=== PATIENT | female | born 1990 | race African-American/Black ===

== ENCOUNTER 2018-09-13 20:46 | Emergency (ER) | payer OTHER ==
[2018-09-13 20:54] VITALS: BP 142/87
--- NOTE | 2018-09-13 21:10 | ED Physician Documentation ---
PD HPI HEENT - Stated complaint Stated Complaint: THROAT PX - Chief complaint Chief Complaint: Heent - History obtained from History obtained from: Patient - History of Present Illness Timing - onset: Enter time (0), Today Timing - duration: Minutes Timing - details: Abrupt onset, Now resolved Location: Throat Improves: Ice Worsens: Swalllowing Associated symptoms: No: Fever, Congestion, Rhinorrhea, Trismus, Unable to swallow, Swollen nodes, Facial swelling, Headache, Cough Similar symptoms before: Has not had sx before Recently seen: Surgery - Additional information Additional information: 28-year-old female who has had her tonsils out 1 week ago for recurrent strep pharyngitis had a painful day yesterday and today the eschar fell off and she developed some bleeding. She states the bleeding was enough to make her stomach sour and she called Dr. Soto the surgeon and he recommended ice water which the patient was able to swallow. The patient states that the bleeding slowed down but continued and she has come to the emergency department. In route to the emergency department the bleeding is resolved she feels comfortable now and denies any sour stomach. Denies any nausea. Review of Systems Constitutional: denies: Fever, Myalgias Eyes: denies: Decreased vision Ears: denies: Ear pain Nose: denies: Rhinorrhea / runny nose, Congestion Throat: reports: Sore throat Cardiac: denies: Chest pain / pressure, Palpitations Respiratory: denies: Dyspnea, Cough GI: reports: Nausea (resovled). denies: Abdominal Pain, Vomiting : denies: Dysuria Skin: denies: Rash Musculoskeletal: denies: Neck pain, Back pain, Extremity pain Neurologic: denies: Generalized weakness, Focal weakness, Numbness PD PAST MEDICAL HISTORY - Past Surgical History Past Surgical History: No - Present Medications Home Medications: Ambulatory Orders Medication Instructions Recorded Confirmed Amoxicillin 500 mg PO TID 7 Days tablet 05/06/14 - Allergies Allergies/Adverse Reactions: Allergies Allergy/AdvReac Type Severity Reaction Status Date / Time No Known Drug Allergies Allergy Verified 09/13/18 20:54 - Social History Does the pt smoke?: No Smoking Status: Never smoker Does the pt drink ETOH?: No - Immunizations Immunizations are current?: Yes PD ED PE NORMAL - Vitals Vital signs reviewed: Yes (hypertensive mild ) - General General: Alert and oriented X 3, No acute distress, Well developed/nourished - HEENT HEENT: Atraumatic, PERRL, EOMI, Other (There is the typical white escar to the right tonsil base and to the left is a clot and no active bleeding. 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, No motor deficit, No sensory deficit, Normal speech Eye Opening: Spontaneous Motor: Obeys Commands Verbal: Oriented GCS Score: 15 - Psych Psych: Normal mood, Normal affect Results - Vitals Vitals: Vital Signs - 24 hr 09/13/18 20:50 Temperature 36.6 C Heart Rate 78 Respiratory 17 Rate Blood Pressure 142/87 H O2 Saturation 100 Oxygen O2 Source Room air PD MEDICAL DECISION MAKING - ED course Complexity details: reviewed old records, considered differential, d/w patient ED course: 28-year-old female with bleeding 1 week status post tonsillectomy has resolution of her current symptoms and has a clot on the left side. I discussed with the patient that should she have recurrence of her bleeding she is to return to the emergency department at any hour and if she has rapid bleeding to call the ambulance. I also indicated her that she likely have a sour stomach from the swallowed blood and may have dark stool for 2 days. At the time of evaluation in the emergency department the patient is smiling and appears well. Departure - Departure Disposition: 01 Home, Self Care Clinical Impression: Postoperative haemorrhage of tonsil Condition: Stable Instructions: ED Tonsillectomy Post Op Bleeding Follow-Up: Efrain Soto MD [Physician No Access] -
== END 2018-09-13 21:25 | disposition home or self-care (01) ==
LOC: ED 20:46
DX: K91.840 Postprocedural hemorrhage of a digestive system organ or structure following a digestive system procedure (principal)
CPT/HCPCS: 99282; 99283

== ENCOUNTER 2018-09-20 16:20 | Emergency (ER) | payer OTHER ==
[2018-09-20 16:25] VITALS: BP 136/80
[2018-09-20] MEDS ORDERED: BUFFERED LIDOCAINE 10 ML SYRINGE SUBQ STA (17:41)
--- NOTE | 2018-09-20 17:56 | ED Physician Documentation ---
PD HPI WOUND RECHECK - Stated complaint Stated Complaint: RT THIGH PX - Chief complaint Chief Complaint: Wound - Histroy obtained from History obtained from: Patient - History of Present Illness Location: Right Lower Extremity (4 days of an ingrown hair, Is on the medial thigh pretty high up. It is painful. No fevers or chills or possibility of .) Review of Systems Constitutional: reports: Reviewed and negative Throat: reports: Reviewed and negative Cardiac: reports: Reviewed and negative Respiratory: reports: Reviewed and negative PD PAST MEDICAL HISTORY - Past Surgical History Past Surgical History: No - Present Medications Home Medications: Ambulatory Orders Medication Instructions Recorded Confirmed Sulfamethoxazole/Trimethoprim 1 each PO BID #20 tablet 09/20/18 [Sulfamethoxazole-Tmp Ds Tablet] - Allergies Allergies/Adverse Reactions: Allergies Allergy/AdvReac Type Severity Reaction Status Date / Time No Known Drug Allergies Allergy Verified 09/20/18 16:25 - Social History Does the pt smoke?: No Smoking Status: Never smoker Does the pt drink ETOH?: No Does the pt have substance abuse?: No - Immunizations Immunizations are current?: Yes PD ED PE NORMAL - Vitals Vital signs reviewed: Yes - General General: Alert and oriented X 3, No acute distress - Extremities Extremities: Other (On the right medial thigh high up there is a pointed 2 cm abscess with mild surrounding cellulitis) - Neuro Neuro: Alert and oriented X 3, Normal speech Results - Vitals Vitals: Vital Signs - 24 hr 09/20/18 16:23 Temperature 36.8 C Heart Rate 95 Respiratory 16 Rate Blood Pressure 136/80 H O2 Saturation 100 Oxygen O2 Source Room air Procedures - Abscess I&D (location) R thigh Preparation: Betadine, Lidocaine 1% Incision: Incised with scalpel, Needle aspiration, Purulent drainage, Loculations broken, Packed (with 1/4 inch packing), Culture obtained Other: Pt tolerated well, Dressing applied, Antibiotic prescribed Departure - Departure Disposition: 01 Home, Self Care Clinical Impression: Abscess Condition: Good Record reviewed to determine appropriate education?: Yes Instructions: ED Abscess IandD Prescriptions: Sulfamethoxazole/Trimethoprim [Sulfamethoxazole-Tmp Ds Tablet] 1 each PO BID #20 tablet Comments: Return or see your doctor in 2 days for wound check and packing removal. We are performing a wound culture, the results should be done in 48-72 hours. If antibiotic change is necessary we will call you. Return if worse in the meantime, especially if you develop increased pain, fevers, cannot keep down the medication. Forms: Activity restrictions Discharge Date/Time: 09/20/18 18:38
[2018-09-20] MEDS ORDERED: SULFAMETH/TRIMETH DS 800/160 MG TABLET PO STA (18:23)
== END 2018-09-20 18:38 | disposition home or self-care (01) ==
LOC: ED 16:20
DX: L02.415 Cutaneous abscess of right lower limb (principal)
CPT/HCPCS: 10060; 87070; 87181; 87205; 99283; A9270

== ENCOUNTER 2019-11-16 10:18 | Emergency (ER) | payer OTHER ==
--- NOTE | 2019-11-16 11:53 | ED Physician Documentation ---
PD HPI URI - Stated complaint Stated Complaint: SOA/COUGH/CONGESTION - Chief complaint Chief Complaint: Resp - History obtained from History obtained from: Patient - History of Present Illness Timing - onset: How many weeks ago (over a week of initially congestion and cough, but now just very persistent cough, with coughing "fits" and feeling of phlegm in chest, but not productive.) Timing duration: Weeks (1) Timing details: Gradual onset, Still present Associated symptoms: Nasal congestion, Productive cough (feeling of phlegm in chest but not able to bring it up), Dyspnea. No: Fever, Sore throat, Swollen nodes, NVD Contributing factors: Sick contact (her son was sick with URI and some cough but improved.). No: Immunocompromised, COPD / asthma Similar symptoms before: Has not had sx before Review of Systems Constitutional: reports: Myalgias. denies: Fever, Chills Nose: reports: Congestion Throat: denies: Sore throat Cardiac: reports: Chest pain / pressure (hurting anteriorly with cough) Respiratory: reports: Dyspnea, Cough. denies: Wheezing GI: reports: Nausea (with coughing hard). denies: Vomiting, Diarrhea Musculoskeletal: denies: Extremity swelling Neurologic: denies: Near syncope, Syncope, Altered mental status PD PAST MEDICAL HISTORY - Past Medical History Past Medical History: No Respiratory: None - Past Surgical History Past Surgical History: Yes HEENT: Tonsil/Adenoidectomy - Present Medications Home Medications: Ambulatory Orders Medication Instructions Recorded Confirmed Sulfamethoxazole/Trimethoprim 1 each PO BID #20 tablet 09/20/18 [Sulfamethoxazole-Tmp Ds Tablet] Albuterol Sulfate [Albuterol 2 puffs IH QID #1 hfa.aer.ad 11/16/19 Sulfate Hfa] Azithromycin [Zithromax] 0 mg PO DAILY #6 tablet 11/16/19 Benzonatate [Tessalon Perle] 100 - 200 mg PO TID PRN #30 capsule 11/16/19 dexAMETHasone [Decadron] 4 mg PO DAILY #5 tablet 11/16/19 - Allergies Allergies/Adverse Reactions: Allergies Allergy/AdvReac Type Severity Reaction Status Date / Time No Known Drug Allergies Allergy Verified 11/16/19 10:23 - Social History Does the pt smoke?: No Smoking Status: Never smoker Does the pt drink ETOH?: Yes Does the pt have substance abuse?: No - Immunizations Immunizations are current?: Yes - POLST Patient has POLST: No PD ED PE NORMAL - Vitals Vital signs reviewed: Yes - General General: Alert and oriented X 3, No acute distress, Well developed/nourished - HEENT HEENT: Ears normal, Moist mucous membranes, Pharynx benign - Neck Neck: Supple, no meningeal sign, No adenopathy - Cardiac Cardiac: RRR, No murmur - Respiratory Respiratory: Clear bilaterally - Derm Derm: Normal color, Warm and dry - Neuro Neuro: Alert and oriented X 3, No motor deficit, Normal speech Results - Vitals Vitals: Vital Signs - 24 hr 11/16/19 11/16/19 10:23 12:33 Temperature 36.7 C Heart Rate 74 76 Respiratory 15 20 Rate Blood Pressure 145/73 H 138/79 H O2 Saturation 99 97 Oxygen O2 Source Room air PD MEDICAL DECISION MAKING - ED course Complexity details: considered differential (URI symptoms then focused symptoms to bronchial that has persisted. hard to tell if persistent viral versus bacterial transformation, with almost pertussis sound to it. ), d/w patient Departure - Departure Disposition: Home, Self Care Clinical Impression: Bronchitis Condition: Stable Record reviewed to determine appropriate education?: Yes Instructions: ED Upper Resp Infec Abx Tx Follow-Up: AREN JOHNSON [Primary Care Provider] - Prescriptions: Albuterol Sulfate [Albuterol Sulfate Hfa] 2 puffs IH QID #1 hfa.aer.ad Azithromycin [Zithromax] 0 mg PO DAILY #6 tablet Benzonatate [Tessalon Perle] 100 - 200 mg PO TID PRN #30 capsule PRN Reason: Cough dexAMETHasone [Decadron] 4 mg PO DAILY #5 tablet Comments: Stay well-hydrated. Use an albuterol inhaler 2 puffs 4 times a day to help with coughing and breathing. Decadron steroid for 5 days to help with bronchial inflammation. Benzonatate as needed for cough. Zithromax antibiotic as directed for 5 days. There may still be some infection present but it may just be inflammation that persists after the chest cold. Discharge Date/Time: 11/16/19 12:32
[2019-11-16] MEDS ORDERED: BENZONATATE 100 MG CAPSULE PO STA (12:20)
[2019-11-16] MEDS ORDERED: DEXAMETHASONE 10 MG/ML VIAL PO STA (12:20)
[2019-11-16] MEDS ORDERED: CHERRY SYRUP 10 ML UDC PO ONE (12:20)
[2019-11-16 12:34] VITALS: BP 138/79
== END 2019-11-16 12:32 | disposition home or self-care (01) ==
LOC: ED 10:18
DX: J40 Bronchitis, not specified as acute or chronic (principal)
CPT/HCPCS: 99284; A9270

== ENCOUNTER 2020-09-05 08:29 | Emergency (ER) | payer OTHER ==
[2020-09-05 08:44] VITALS: BP 132/90
--- NOTE | 2020-09-05 09:00 | ED Physician Documentation ---
History of Present Illness - Stated complaint Stated Complaint: NOSE PX - Chief complaint Chief Complaint: Heent - History obtained from History obtained from: Patient - History of Present Illness Timing: Today Pain level max: 0 Pain level now: 0 - Additonal information Additional information: 30-year-old female states she is unable to remove her nose ring today. Requesting removal. Nothing makes it better or worse. Review of Systems Constitutional: denies: Fever, Chills GI: denies: Vomiting, Diarrhea Skin: denies: Rash Musculoskeletal: denies: Neck pain, Back pain Neurologic: denies: Headache PD PAST MEDICAL HISTORY - Past Medical History Past Medical History: Yes Respiratory: None - Past Surgical History Past Surgical History: Yes HEENT: Tonsil/Adenoidectomy - Present Medications Home Medications: Ambulatory Orders Medication Instructions Recorded Confirmed No Known Home Medications 09/05/20 09/05/20 - Allergies Allergies/Adverse Reactions: Allergies Allergy/AdvReac Type Severity Reaction Status Date / Time No Known Drug Allergies Allergy Verified 09/05/20 08:44 - Social History Does the pt smoke?: No Smoking Status: Never smoker Does the pt drink ETOH?: Yes Does the pt have substance abuse?: No - Immunizations Immunizations are current?: Yes - POLST Patient has POLST: No PD ED PE NORMAL - Vitals Vital signs reviewed: Yes - General General: Alert and oriented X 3, No acute distress - HEENT HEENT: Moist mucous membranes, Other (nasal septum ring in place) - Neck Neck: Supple, no meningeal sign - Derm Derm: Warm and dry - Neuro Neuro: Alert and oriented X 3 - Psych Psych: Normal mood, Normal affect Results - Vitals Vitals: Vital Signs - 24 hr 09/05/20 08:42 Temperature 36.4 C L Heart Rate 78 Respiratory 16 Rate Blood Pressure 132/90 H O2 Saturation 99 Oxygen O2 Source Room air PD MEDICAL DECISION MAKING - ED course Complexity details: considered differential, d/w patient ED course: The nasal septum ring was cut. Both sides were then removed. Patient tolerated well. No complications. Patient counseled regarding signs and symptoms for which I believe and urgent re-evaluation would be necessary. Patient with good understanding of and agreement to plan and is comfortable going home at this time This document was made in part using voice recognition software. While efforts are made to proofread this document, sound alike and grammatical errors may occur. Departure - Departure Disposition: Home, Self Care Clinical Impression: Foreign body in soft tissue Condition: Good Instructions: ED Foreign Body Soft Tissue Removed Follow-Up: your,doctor as needed [Other] Comments: Your nose ring was removed today. Return if you worsen.
== END 2020-09-05 09:02 | disposition home or self-care (01) ==
LOC: ED 08:29
DX: M79.5 Residual foreign body in soft tissue (principal); W49.04XA Ring or other jewelry causing external constriction, initial encounter
CPT/HCPCS: 99281; 99282

== ENCOUNTER 2021-04-09 21:49 | Emergency (ER) | payer OTHER ==
[2021-04-09] MEDS ORDERED: ONDANSETRON ODT 4 MG TABLET TL STA (22:56)
[2021-04-09] MEDS ORDERED: ACETAMINOPHEN 325 MG TABLET PO STA (22:56)
[2021-04-09 23:05] VITALS: BP 140/75
--- NOTE | 2021-04-10 00:32 | ED Physician Documentation ---
History of Present Illness - Stated complaint Stated Complaint: NAUSEA/MICHEL - Chief complaint Chief Complaint: Heent - History obtained from History obtained from: Patient - Additonal information Additional information: 30-year-old woman Presents with frontal headache starting at 11 AM, gradual in onset, associated with nausea as well as 5 episodes of diarrhea. Patient states that she ate ghost pepper food yesterday and had burning diarrhea, and also has some stomach upset related to this. Denies vomiting, however she did spit up a little bit. Denies urinary symptoms or back pain. Review of Systems Ten Systems: 10 systems reviewed and negative Constitutional: denies: Fever, Chills GI: reports: Abdominal Pain, Nausea PD PAST MEDICAL HISTORY - Past Medical History Past Medical History: No Cardiovascular: None Respiratory: None Neuro: None Endocrine/Autoimmune: None GI: None ENTERTAINMENT MUSICIAN: None : None HEENT: None Psych: None Musculoskeletal: None Derm: None - Past Surgical History Past Surgical History: Yes HEENT: Tonsil/Adenoidectomy, Other - Present Medications Home Medications: Ambulatory Orders Medication Instructions Recorded Confirmed Ondansetron Odt [Zofran Odt] 4 mg TL Q6H PRN #10 tablet 04/10/21 - Allergies Allergies/Adverse Reactions: Allergies Allergy/AdvReac Type Severity Reaction Status Date / Time No Known Drug Allergies Allergy Verified 04/09/21 22:17 - Social History Does the pt smoke?: No Smoking Status: Never smoker Does the pt drink ETOH?: Yes Does the pt have substance abuse?: No - Immunizations Immunizations are current?: Yes - POLST Patient has POLST: No PD ED PE NORMAL - Vitals Vital signs reviewed: Yes - General General: Alert and oriented X 3, No acute distress, Well developed/nourished - HEENT HEENT: Atraumatic, PERRL, EOMI - Neck Neck: Supple, no meningeal sign - Cardiac Cardiac: RRR - Respiratory Respiratory: No respiratory distress, Clear bilaterally - Abdomen Abdomen: Non tender, Non distended - Back Back: No CVA TTP - Derm Derm: Normal color, Warm and dry - Extremities Extremities: No deformity - Neuro Neuro: Alert and oriented X 3 - Psych Psych: Normal mood, Normal affect Results - Vitals Vitals: Vital Signs - 24 hr 04/09/21 04/09/21 04/09/21 22:15 23:04 23:32 Temperature 36.5 C 37.5 C Heart Rate 79 92 Respiratory 16 18 15 Rate Blood Pressure 145/89 H 140/75 H O2 Saturation 100 98 04/10/21 00:41 Temperature Heart Rate Respiratory 15 Rate Blood Pressure O2 Saturation Oxygen O2 Source Room air PD MEDICAL DECISION MAKING - ED course ED course: Nausea, headache, resolved with symptomatic care. Differential consideredlikely GI upset related to spicy food imbibed last night versus viral gastroenteritis. Education given about symptom care. Return precautions given. She will follow up with her primary doctor. Departure - Departure Disposition: Home, Self Care Clinical Impression: Nausea and vomiting, Diarrhea Condition: Good Instructions: ED Gastroenteritis Viral Prescriptions: Ondansetron Odt [Zofran Odt] 4 mg TL Q6H PRN #10 tablet PRN Reason: Nausea / Vomiting Comments: You were seen in the emergency department for a stomach bug (viral gastroenteritis). Ensure that you stay home and get lots of rest and stay well- hydrated. Return to the emergency department if you have any new or worsening symptoms or other concerns. Follow-up with your primary doctor. Forms: Activity restrictions Discharge Date/Time: 04/10/21 00:41
== END 2021-04-10 00:41 | disposition home or self-care (01) ==
LOC: ED 21:49
DX: R11.2 Nausea with vomiting, unspecified (principal); R19.7 Diarrhea, unspecified
CPT/HCPCS: 99282; 99284; A9270; Q0162

== ENCOUNTER 2021-05-30 20:16 | Emergency (ER) | payer OTHER ==
[2021-05-30 20:34] VITALS: BP 149/100
[2021-05-30] MEDS ORDERED: BACITRACIN ZINC OINT 1 PACKET TOP STA (22:04)
[2021-05-30] MEDS ORDERED: BUFFERED LIDOCAINE 10 ML SYRINGE SUBQ STA (22:05)
--- NOTE | 2021-05-30 22:28 | ED Physician Documentation ---
History of Present Illness - Stated complaint Stated Complaint: FINGER LAC/INJ - Chief complaint Chief Complaint: Laceration - Additonal information Additional information: 30-year-old female presents emergency department for evaluation of a left ring finger laceration palmar side between the PIP and DIP joint. Sustained when reaching into a suitcase and found broken glass in it. Tetanus is up-to-date. Patient is right-hand dominant. Review of Systems Constitutional: reports: Reviewed and negative Nose: reports: Reviewed and negative Cardiac: reports: Reviewed and negative Respiratory: reports: Reviewed and negative Skin: reports: Laceration (s) PD PAST MEDICAL HISTORY - Past Medical History Past Medical History: No Cardiovascular: None Respiratory: None Neuro: None Endocrine/Autoimmune: None GI: None CAR REPAIRER APPRENTICE: None : None HEENT: None Psych: None Musculoskeletal: None Derm: None - Past Surgical History Past Surgical History: Yes HEENT: Tonsil/Adenoidectomy, Other - Present Medications Home Medications: Ambulatory Orders Medication Instructions Recorded Confirmed No Known Home Medications 05/30/21 05/30/21 - Allergies Allergies/Adverse Reactions: Allergies Allergy/AdvReac Type Severity Reaction Status Date / Time No Known Drug Allergies Allergy Verified 05/30/21 20:32 - Social History Does the pt smoke?: No Smoking Status: Never smoker Does the pt drink ETOH?: Yes Does the pt have substance abuse?: No - Immunizations Immunizations are current?: Yes - POLST Patient has POLST: No PD ED PE EXPANDED - Extremities Extremities: Left finger(s) (1.5 cm laceration palmar side left ring finger between MCP and DIP joint. Patient able to fully extend and flex at the digit against resistance. Distal sensation intact. Bleeding controlled pressure.) Results - Vitals Vitals: Vital Signs - 24 hr 05/30/21 20:33 Temperature 37.5 C Heart Rate 103 H Respiratory 18 Rate Blood Pressure 149/100 H O2 Saturation 99 Oxygen O2 Source Room air Procedures - Laceration (location) Left ring finger Length in cm: 2 Wound type: Linear, Into subcut fat Neurovascular status: Sensory intact, Motor intact Tendon involvement: Tendon intact Anesthesia: Lidocaine 1% Wound preparation: Chlorhexadine, Irrigated copiously NS Skin layer closure: Interrupted, Size #-0 - enter number (4), Sutures - enter # (3) Other: Patient tolerated well, No complications, Tetanus UTD PD MEDICAL DECISION MAKING - ED course Complexity details: reviewed results, d/w patient, d/w family ED course: Simple laceration left ring finger closed easily with 3 sutures. Routine wound care emergent return precautions were discussed. Tetanus is up-to-date. Departure - Departure Disposition: 01 Home, Self Care Clinical Impression: Finger laceration Qualifiers: Encounter type: initial encounter Finger: ring finger Damage to nail status: without damage Foreign body presence: without foreign body Laterality: left Qualified Code(s): S61.215A - Laceration without foreign body of left ring finger without damage to nail, initial encounter Condition: Stable Record reviewed to determine appropriate education?: Yes Instructions: ED Laceration Hand Comments: Your suture should be removed in 7 to 10 days. In 24 hours you may remove the dressing wash gently with warm soap and water, apply any antibiotic ointment and a simple bandage. Your tetanus is up-to-date. Please attempt to keep your wound clean and dry. Do not submerge it in dirty di shwater or bath water. Return to the emergency department if you have any concerns of infection such as redness, fevers milky drainage increased pain.
== END 2021-05-30 22:32 | disposition home or self-care (01) ==
LOC: ED 20:16
DX: S61.215A Laceration without foreign body of left ring finger without damage to nail, initial encounter (principal); W25.XXXA Contact with sharp glass, initial encounter
CPT/HCPCS: 12001; 99281; A9270